=== PATIENT | male | born 1965 | race Two or more races ===

== ENCOUNTER 2019-01-31 11:28 | Inpatient (IN) | payer OTHER ==
[~2019-01-31 11:28] MED LIST: chlordiazePOXIDE HCL 25 MG CAPSULE PO SCH
[2019-01-31 12:06] VITALS: BMI 27.3
--- NOTE | 2019-01-31 13:23 | HP ---
CIWA Score Nausea/Vomitin Muscle Tremors: 2 Anxiety: 2 Agitation: 2 Paroxysmal Sweats: No Perspiration Orientation: 0-Oriented Tacttile Disturbances: 0-None Auditory Disturbances: 0-None Visual Disturbances: 0-None Headache: 4-Moderately Severe CIWA-Ar Total Score: 13 - Admission Criteria OASAS Guidelines: Admission for Medically Managed Detox: Requires at least one of the followin. CIWA greater than 12 2. Seizures within the past 24 hours 3. Delirium tremens within the past 24 hours 4. Hallucinations within the past 24 hours 5. Acute intervention needed for co occurring medical disorder 6. Acute intervention needed for co occurring psychiatric disorder 7. Severe withdrawal that cannot be handled at a lower level of care (continued vomiting, continued diarrhea, abnormal vital signs) requiring intravenous medication and/or fluids 8. Admission ROS [facility] Chief Complaint: seeking detox from alcohol use Allergies/Adverse Reactions: Allergies Allergy/AdvReac Type Severity Reaction Status Date / Time No Known Allergies Allergy Verified 01/31/19 11:48 History of Present Illness: 53 y/o/m here seeking detox from alcohol and cocaine use. He was admitted [facility] on 01/19 for a right foot injury he sustained after trying to jump over a fence. While he was admitted he had a cast placed on his right leg but did not require surgery. After he was discharged yesterday he started to drink again but today decided that he wanted to stop and came here for detox. He drank 2 40oz beers yesterday and 1 40z beer today. Prior to being admitted to [facility] he states he was drinking more. He states he has been drinking heavily for 30 years. He denies any extended periods of sobriety. He went to a detox facility 2 months ago at [facility] and then started rehab but did not complete his rehab and started drinking again. He has been using cocaine for 30 years. He is using about 200 dollars worth of cocaine weekly. He states he uses the cocaine mainly to control his back pain. He states he has 2 herniated discs in his neck and 2 in back. He used to smoke a pack a day but now has cut down to 6-7 cigarettes. He does not want a nicotine patch or gum. He would like to complete detox and go to a sober house for rehab. He was given a wheelchair when he was discharged from [facility]. - Ebola screening Have you traveled outside of the country in the last 21 days: No Have you had contact with anyone from an Ebola affected area: No Do you have a fever: No - Review of Systems Constitutional: No Symptoms Reported EENT: reports: No Symptoms Reported Respiratory: reports: No Symptoms reported Cardiac: reports: No Symptoms Reported GI: reports: Diarrhea, Nausea : reports: No Symptoms Reported Musculoskeletal: reports: Back Pain Integumentary: reports: No Symptoms Reported Neuro: reports: Headache Endocrine: reports: No Symptoms Reported Hematology: reports: No Symptoms Reported Psychiatric: reports: Agitated, Anxious Other Systems: Reviewed and Negative Patient History - Patient Medical History Hx Anemia: No Hx Asthma: Yes Hx Chronic Obstructive Pulmonary Disease (COPD): No Hx Cancer: No Hx Cardiac Disorders: No Hx Congestive Heart Failure: No Hx Hypertension: No Hx Hypercholesterolemia: No Hx Pacemaker: No HX Cerebrovascular Accident: No Hx Seizures: No Hx Dementia: No Hx Diabetes: No Hx Gastrointestinal Disorders: No Hx Liver Disease: No Hx Genitourinary Disorders: No Hx Sexually Transmitted Disorders: No Hx Renal Disease (ESRD): No Hx Thyroid Disease: No Hx Human Immunodeficiency Virus (HIV): No Hx Hepatitis C: No Hx Depression: No Hx Suicide Attempt: No Hx Bipolar Disorder: No Hx Schizophrenia: No Other Medical History: no suicidal or homicidal ideations - Patient Surgical History Past Surgical History: No Hx Neurologic Surgery: No Hx Cataract Extraction: No Hx Cardiac Surgery: No Hx Lung Surgery: No Hx Abdominal Surgery: No Hx Appendectomy: No Hx Cholecystectomy: No Hx Genitourinary Surgery: No Hx Section: No Hx Orthopedic Surgery: No Hx Hysterectomy: No Anesthesia Reaction: No - PPD History Previous Implant?: Yes Documented Results: Negative w/o proof Implanted On Prior R Admission?: No PPD to be Administered?: Yes - Smoking Cessation Smoking history: Current every day smoker Aproximately how many cigarettes per day: 7 Hx Chewing Tobacco Use: No Initiated information on smoking cessation: Yes 'Breaking Loose' booklet given: 01/31/19 - Substance & Tx. History Hx Alcohol Use: Yes Hx Substance Use: Yes Substance Use Type: Alcohol, Cocaine - Substances abused Alcohol Substance route: Oral Frequency: Daily Amount used: 2/40OZ CANS Age of first use: 10 Date of last use: 01/31/19 Cocaine Substance route: Inhalation Frequency: Daily Amount used: $200-$500 Age of first use: 16 Date of last use: 01/31/19 Family Disease History - Family Disease History Family History: Denies Admission Physical Exam [facility] - Vital Signs Vital Signs: Vital Signs - 24 hr 01/31/19 12:00 Temperature 98.6 F Pulse Rate 120 H Respiratory 18 Rate Blood Pressure 138/86 - Physical General Appearance: Yes: Within Normal Limits, Nourished HEENTM: Yes: EOMI, Hearing grossly Normal, Normocephalic Respiratory: Yes: Lungs Clear, Normal Breath Sounds, No Accessory Muscle Use. No: Wheezing Neck: Yes: Supple Cardiology: Yes: Regular Rhythm, Regular Rate, S1, S2 Abdominal: Yes: Normal Bowel Sounds, Non Tender, Soft. No: Distended, Guarding , Rebound Back: Yes: Other (moderate tenderness to palpation over L3-L5 region, worse on the right) Musculoskeletal: Yes: Within Normal Limits, Other (cast over right leg and foot) Extremities: Yes: Normal Capillary Refill Neurological: Yes: windows systems administrator II-XII NML intact, Fully Oriented, Alert, Motor Strength 5/5 Integumentary: Yes: Within Normal Limits Lymphatic: Yes: Within Normal Limits - Diagnostic (1) Alcohol dependence with uncomplicated withdrawal Current Visit: Yes Status: Acute (2) Asthma Current Visit: Yes Status: Acute (3) Cocaine use Current Visit: Yes Status: Acute (4) Nicotine dependence Current Visit: Yes Status: Acute (5) Calcaneal fracture Current Visit: Yes Status: Acute (6) Crutches as ambulation aid Current Visit: Yes Status: Acute (7) Wheel chair as ambulatory aid Current Visit: Yes Status: Acute Cleared for Admission [facility] - Detox or Rehab [facility] Level of Care: Medically Managed Detox Regimen/Protocol: Librium Breathalyzer - Breathalyzer Breathalyzer: 0 Urine Drug Screen - Test Device Lot number: [id number] Expiration date: 09/28/20 - Control Is test valid?: Yes - Results Drug screen NEGATIVE: No Urine drug screen results: UTE-Cocaine Inpatient Rehab Admission - Rehab Decision to Admit Inpatient rehab admission?: No
[2019-01-31] MEDS ORDERED: chlordiazePOXIDE HCL 25 MG CAPSULE PO PRN (13:57)
[2019-01-31] MEDS ORDERED: MENTHOL/PHENOL 1 EACH UD MM PRN (13:57)
[2019-01-31] MEDS ORDERED: MAG HYDROX/AL HYDROX/SIMETH 30 ML UNIT-DOSE CUP PO PRN (13:57)
[2019-01-31] MEDS ORDERED: MAGNESIUM HYDROX 2400MG/30ML ORAL SUSPENSION 30 ML CUP PO PRN (13:57)
[2019-01-31] MEDS ORDERED: ACETAMINOPHEN 325 MG TABLET (FP) PO PRN ×2 (13:57)
[2019-01-31] MEDS ORDERED: MAGNESIUM CITRATE 300 ML BOTTLE PO PRN (13:57)
[2019-01-31] MEDS ORDERED: BISMUTH SUBSALICYLATE 262 MG/15 ML BTL PO PRN (13:57)
[2019-01-31] MEDS ORDERED: hydrOXYzine PAMOATE 25 MG CAPSULE (FP) PO PRN (13:57)
[2019-01-31] MEDS ORDERED: PATIENT'S OWN MEDICATION (NON-FORMULARY) (Ibuprofen [Ibuprofen] 800 MG) PO PRN (13:59)
[2019-01-31] MEDS ORDERED: ALBUTEROL SO4 8 GM HFA INHALER IH PRN (13:59)
--- NOTE | 2019-01-31 14:29 | PN ---
[facility] Progress Note Note: this 53 years old male with alcohol dependence and cocaine dependence,seeking detox,extensive history of drinkiing problem, i personally present,review and discuss plan of treatment and review history and examination by Dr.Abbi Aragon, i agreed and concurred that this patient need inpatient detox from alcohol and cocaine,Medically Managed ,Librium regimen
--- NOTE | 2019-01-31 14:33 | PN ---
[facility] Progress Note Note: addendum correction I personally review,present with Dr.Harmanpree Castillo, review history and examination,plan of treatment and agrees and concurred for inpatient detox,medically managed and Librium regimen
[2019-01-31] MEDS: GABAPENTIN 300 MG CAPSULE (FP) PO SCH ×2 (15:36→22:23)
[2019-01-31] MEDS: chlordiazePOXIDE HCL 25 MG CAPSULE PO SCH ×2 (16:59→22:23)
[2019-01-31] MEDS: IBUPROFEN 400 MG TABLET (FP) PO PRN (16:59)
[2019-01-31 17:46] LABS: BILIRUBIN,TOTAL 0.4 mg/dL (0.2-1); BLOOD UREA NITROGEN 17.6 mg/dL (7-18); CALCIUM 10.2 mg/dL (8.5-10.1); CREATININE 1.2 mg/dL (0.55-1.3); POTASSIUM 4.7 mmol/L (3.5-5.1); TOT PROT 7.5 g/dl (6.4-8.2)
[2019-01-31 18:07] LABS: HEMATOCRIT 45.7 % (35.4-49); MCH 29.7 pg (25.7-33.7); MCHC 32.8 g/dl (32.0-35.9); MEAN CELL VOLUME 90.4 fl (80-96); MEAN PLT VOLUME 8.5 fl (7.5-11.1); PLATELET COUNT 304 K/MM3 (134-434); RBC 5.05 M/mm3 (4.00-5.60); RDW 13.2 % (11.9-15.9); WHITE BLOOD COUNT 11.5 K/mm3 (4.0-10.0)
[2019-01-31] MEDS: THIAMINE HCL 100 MG TABLET (FP) PO SCH (22:21)
[2019-01-31] MEDS: METHOCARBAMOL 500 MG TABLET PO PRN (22:24)
[2019-02-01] MEDS: GABAPENTIN 300 MG CAPSULE (FP) PO SCH ×3 (06:10→22:53)
[2019-02-01] MEDS: chlordiazePOXIDE HCL 25 MG CAPSULE PO SCH ×4 (06:10→22:53)
[2019-02-01 09:43] LABS: HYALINE CASTS 7 /lpf (0-8); URINE APPEARANCE TURBID; URINE BACTERIA 13.5 /hpf (NEGATIVE); URINE BILIRUBIN NEGATIVE (NEGATIVE); URINE COLOR DK YELLOW; URINE GLUCOSE (UA) NEGATIVE (NEGATIVE); URINE KETONE TRACE (NEGATIVE); URINE LEUK ESTERASE NEGATIVE (NEGATIVE); URINE NITRITE NEGATIVE (NEGATIVE); URINE PROTEIN 1+ (NEGATIVE); URINE RBC 6 /hpf (0-4); URINE UROBILINOGEN 0.2 mg/dL (0.2-1.0); URINE WBC 6 /hpf (0-5)
[2019-02-01] MEDS: ASPIRIN 81 MG CHEWABLE TABLETS PO SCH (10:00)
[2019-02-01] MEDS: PRENATAL VITAMINS W/ FOLIC ACID TABLET (FP) PO SCH (10:00)
--- NOTE | 2019-02-01 10:16 | PN ---
S CIWA - CIWA Score Nausea/Vomitin Muscle Tremors: 2 Anxiety: 2 Agitation: 2 Paroxysmal Sweats: No Perspiration Orientation: 0-Oriented Tacttile Disturbances: 1-Very Mild Itch/Numbness Auditory Disturbances: 1-Very Mild Visual Disturbances: 0-None Headache: 2-Mild CIWA-Ar Total Score: 12 BHS Progress Note (SOAP) Subjective: alert,irritable,anxious,interrupted sleep,pain in the right foot,ambulation the hallway with wheelchair Objective: 02/01/19 10:12 Vital Signs Temperature 97.9 F 02/01/19 09:17 Pulse Rate 121 H 02/01/19 09:17 Respiratory Rate 18 02/01/19 09:17 Blood Pressure 147/90 02/01/19 09:17 O2 Sat by Pulse Oximetry (%) 02/01/19 10:13 Laboratory Last Values WBC 11.5 K/mm3 (4.0-10.0) H 01/31/19 14:20 RBC 5.05 M/mm3 (4.00-5.60) 01/31/19 14:20 Hgb 15.0 GM/dL (11.7-16.9) 01/31/19 14:20 Hct 45.7 % (35.4-49) 01/31/19 14:20 MCV 90.4 fl (80-96) 01/31/19 14:20 MCH 29.7 pg (25.7-33.7) 01/31/19 14:20 MCHC 32.8 g/dl (32.0-35.9) 01/31/19 14:20 RDW 13.2 % (11.9-15.9) 01/31/19 14:20 Plt Count 304 K/MM3 (134-434) 01/31/19 14:20 MPV 8.5 fl (7.5-11.1) 01/31/19 14:20 Sodium 137 mmol/L (136-145) 01/31/19 14:20 Potassium 4.7 mmol/L (3.5-5.1) 01/31/19 14:20 Chloride 102 mmol/L (98-107) 01/31/19 14:20 Carbon Dioxide 30 mmol/L (21-32) 01/31/19 14:20 Anion Gap 5 MMOL/L (8-16) L 01/31/19 14:20 BUN 17.6 mg/dL (7-18) 01/31/19 14:20 Creatinine 1.2 mg/dL (0.55-1.3) 01/31/19 14:20 Est GFR (CKD-EPI)AfAm 80.66 01/31/19 14:20 Est GFR (CKD-EPI)NonAf 69.59 01/31/19 14:20 Random Glucose 119 mg/dL (74-106) H 01/31/19 14:20 Calcium 10.2 mg/dL (8.5-10.1) H 01/31/19 14:20 Total Bilirubin 0.4 mg/dL (0.2-1) 01/31/19 14:20 AST 18 U/L (15-37) 01/31/19 14:20 ALT 81 U/L (13-61) H 01/31/19 14:20 Alkaline Phosphatase 122 U/L (45-117) H 01/31/19 14:20 Total Protein 7.5 g/dl (6.4-8.2) 01/31/19 14:20 Albumin 4.0 g/dl (3.4-5.0) 01/31/19 14:20 Urine Color Dk yellow 01/31/19 18:41 Urine Appearance Turbid 01/31/19 18:41 Urine pH 5.0 (5.0-8.0) 01/31/19 18:41 Ur Specific [place] 1.024 (1.010-1.035) 01/31/19 18:41 Urine Protein 1+ (NEGATIVE) H 01/31/19 18:41 Urine Glucose (UA) Negative (NEGATIVE) 01/31/19 18:41 Urine Ketones Trace (NEGATIVE) H 01/31/19 18:41 Urine Blood Negative (NEGATIVE) 01/31/19 18:41 Urine Nitrite Negative (NEGATIVE) 01/31/19 18:41 Urine Bilirubin Negative (NEGATIVE) 01/31/19 18:41 Urine Urobilinogen 0.2 mg/dL (0.2-1.0) 01/31/19 18:41 Ur Leukocyte Esterase Negative (NEGATIVE) 01/31/19 18:41 Urine WBC (Auto) 6 /hpf (0-5) 01/31/19 18:41 Urine RBC (Auto) 6 /hpf (0-4) 01/31/19 18:41 Urine Casts (Auto) 7 /lpf (0-8) 01/31/19 18:41 U Epithel Cells (Auto) 1.0 /HPF (0-5/HPF) 01/31/19 18:41 Urine Bacteria (Auto) 13.5 /hpf (NEGATIVE) 01/31/19 18:41 HIV 1&2 Antibody Screen Negative 01/31/19 14:20 HIV P24 Antigen Negative 01/31/19 14:20 Assessment: 02/01/19 10:14 withdrawal symptom Plan: continue detox,wbc 11,500,glucose 119,alt 81,[id number] encourage oral fluid,repeat cbc,cmp in am,fasting glucose in am
--- NOTE | 2019-02-01 10:28 | EKG ---
Test Reason : Blood Pressure : / mmHG Vent. Rate : 104 BPM Atrial Rate : 104 BPM P-R Int : 124 ms QRS Dur : 094 ms QT Int : 330 ms P-R-T Axes : 063 027 -44 degrees QTc Int : 433 ms SINUS TACHYCARDIA VOLTAGE CRITERIA FOR LEFT VENTRICULAR HYPERTROPHY CANNOT RULE OUT SEPTAL INFARCT , AGE UNDETERMINED T WAVE ABNORMALITY, CONSIDER INFERIOR ISCHEMIA ABNORMAL ECG NO PREVIOUS ECGS AVAILABLE Confirmed by CLAUDIA ENRIQUE MD ([id number]) on 02/01/2019 10:27:54 AM Referred By: Confirmed By:CLAUDIA ENRIQUE MD
[2019-02-01] MEDS: IBUPROFEN 400 MG TABLET (FP) PO PRN (17:35)
[2019-02-01] MEDS: THIAMINE HCL 100 MG TABLET (FP) PO SCH (22:53)
[2019-02-01] MEDS: METHOCARBAMOL 500 MG TABLET PO PRN (23:25)
[2019-02-02] MEDS ORDERED: chlordiazePOXIDE HCL 10 MG CAPSULE PO PRN
[2019-02-02] MEDS: chlordiazePOXIDE HCL 25 MG CAPSULE PO SCH ×4 (06:03→22:59)
[2019-02-02] MEDS: GABAPENTIN 300 MG CAPSULE (FP) PO SCH ×3 (06:03→22:59)
[2019-02-02] MEDS: IBUPROFEN 400 MG TABLET (FP) PO PRN (06:03)
[2019-02-02 10:12] LABS: ALBUMIN 3.3 g/dl (3.4-5.0); BILIRUBIN,TOTAL 0.4 mg/dL (0.2-1); BLOOD UREA NITROGEN 20.7 mg/dL (7-18); CALCIUM 9.2 mg/dL (8.5-10.1); CREATININE 0.9 mg/dL (0.55-1.3); POTASSIUM 4.6 mmol/L (3.5-5.1); TOT PROT 6.3 g/dl (6.4-8.2)
[2019-02-02 10:15] LABS: HEMATOCRIT 38.9 % (35.4-49); HEMOGLOBIN 13.2 GM/dL (11.7-16.9); MCH 30.4 pg (25.7-33.7); MEAN CELL VOLUME 89.4 fl (80-96); MEAN PLT VOLUME 7.9 fl (7.5-11.1); PLATELET COUNT 255 K/MM3 (134-434); RBC 4.35 M/mm3 (4.00-5.60); RDW 12.8 % (11.9-15.9); WHITE BLOOD COUNT 5.8 K/mm3 (4.0-10.0)
[2019-02-02] MEDS: ASPIRIN 81 MG CHEWABLE TABLETS PO SCH (11:00)
[2019-02-02] MEDS: PRENATAL VITAMINS W/ FOLIC ACID TABLET (FP) PO SCH (11:00)
--- NOTE | 2019-02-02 11:44 | PN ---
S CIWA - CIWA Score Nausea/Vomitin Muscle Tremors: 2 Anxiety: 2 Agitation: 2 Paroxysmal Sweats: No Perspiration Orientation: 0-Oriented Tacttile Disturbances: 0-None Auditory Disturbances: 0-None Visual Disturbances: 0-None Headache: 1-Very Mild CIWA-Ar Total Score: 9 BHS Progress Note (SOAP) Subjective: alert,irritable,anxious,interrupted sleep,pain in the body Objective: 02/02/19 11:43 Vital Signs Temperature 98.1 F 02/02/19 10:00 Pulse Rate 100 H 02/02/19 10:00 Respiratory Rate 18 02/02/19 10:00 Blood Pressure 139/77 02/02/19 10:00 O2 Sat by Pulse Oximetry (%) 02/02/19 11:43 Laboratory Results - last 24 hr 01/31/19 02/02/19 02/02/19 18:41 07:50 07:50 WBC 5.8 RBC 4.35 Hgb 13.2 Hct 38.9 MCV 89.4 MCH 30.4 MCHC 34.0 RDW 12.8 Plt Count 255 MPV 7.9 Sodium 142 Potassium 4.6 Chloride 109 H Carbon Dioxide 28 Anion Gap 5 L BUN 20.7 H Creatinine 0.9 Est GFR (CKD-EPI)AfAm 114.21 Est GFR (CKD-EPI)NonAf 98.54 Random Glucose 140 H Fasting Glucose Calcium 9.2 Total Bilirubin 0.4 AST 17 ALT 56 Alkaline Phosphatase 108 Total Protein 6.3 L Albumin 3.3 L Urine Crystals (Auto) 02/02/19 07:50 WBC RBC Hgb Hct MCV MCH MCHC RDW Plt Count MPV Sodium Potassium Chloride Carbon Dioxide Anion Gap BUN Creatinine Est GFR (CKD-EPI)AfAm Est GFR (CKD-EPI)NonAf Random Glucose Fasting Glucose 141 H Calcium Total Bilirubin AST ALT Alkaline Phosphatase Total Protein Albumin Urine Crystals (Auto) Assessment: 02/02/19 11:44 withdrawal symptom Plan: continue detox,bgm monitoring
[2019-02-02] MEDS: THIAMINE HCL 100 MG TABLET (FP) PO SCH (23:00)
[2019-02-02] MEDS: MELATONIN 5 MG TABLETS PO PRN (23:00)
[2019-02-02] MEDS: METHOCARBAMOL 500 MG TABLET PO PRN (23:00)
[2019-02-03] MEDS: chlordiazePOXIDE HCL 10 MG CAPSULE PO SCH ×4 (05:24→23:16)
[2019-02-03] MEDS: GABAPENTIN 300 MG CAPSULE (FP) PO SCH ×3 (05:24→23:12)
[2019-02-03] MEDS: ASPIRIN 81 MG CHEWABLE TABLETS PO SCH (10:30)
[2019-02-03] MEDS: PRENATAL VITAMINS W/ FOLIC ACID TABLET (FP) PO SCH (10:30)
--- NOTE | 2019-02-03 10:41 | PN ---
S CIWA - CIWA Score Nausea/Vomitin-No Nausea/No Vomiting Muscle Tremors: None Anxiety: 3 Agitation: 2 Paroxysmal Sweats: 3 Orientation: 0-Oriented Tacttile Disturbances: 0-None Auditory Disturbances: 0-None Visual Disturbances: 0-None Headache: 0-None Present CIWA-Ar Total Score: 8 S Progress Note (SOAP) Subjective: c/o interrupted sleep, right ankle pain, and anxiety. Objective: 02/03/19 10:40 Vital Signs 02/03/19 02/03/19 07:47 09:25 Temperature 97.3 F L 98.2 F Pulse Rate 80 91 H Respiratory 18 18 Rate Blood Pressure 133/62 159/86 Lab Results WBC 5.8 K/mm3 (4.0-10.0) 02/02/19 07:50 RBC 4.35 M/mm3 (4.00-5.60) 02/02/19 07:50 Hgb 13.2 GM/dL (11.7-16.9) 02/02/19 07:50 Hct 38.9 % (35.4-49) 02/02/19 07:50 MCV 89.4 fl (80-96) 02/02/19 07:50 MCHC 34.0 g/dl (32.0-35.9) 02/02/19 07:50 RDW 12.8 % (11.9-15.9) 02/02/19 07:50 Plt Count 255 K/MM3 (134-434) 02/02/19 07:50 Sodium 142 mmol/L (136-145) 02/02/19 07:50 Potassium 4.6 mmol/L (3.5-5.1) 02/02/19 07:50 Chloride 109 mmol/L (98-107) H 02/02/19 07:50 Carbon Dioxide 28 mmol/L (21-32) 02/02/19 07:50 Anion Gap 5 MMOL/L (8-16) L 02/02/19 07:50 BUN 20.7 mg/dL (7-18) H 02/02/19 07:50 Creatinine 0.9 mg/dL (0.55-1.3) 02/02/19 07:50 Random Glucose 140 mg/dL (74-106) H 02/02/19 07:50 Calcium 9.2 mg/dL (8.5-10.1) 02/02/19 07:50 Labs noted Assessment: 02/03/19 10:41 AOX3, in no acute respiratory distress. Full ROM, ambulating in the unit. withdrawal symptoms Plan: continue detox.
[2019-02-03] MEDS: MELATONIN 5 MG TABLETS PO PRN (23:12)
[2019-02-03] MEDS: THIAMINE HCL 100 MG TABLET (FP) PO SCH (23:16)
[2019-02-04] MEDS: IBUPROFEN 400 MG TABLET (FP) PO PRN (01:25)
[2019-02-04] MEDS: METHOCARBAMOL 500 MG TABLET PO PRN (01:31)
[2019-02-04] MEDS: GABAPENTIN 300 MG CAPSULE (FP) PO SCH ×3 (06:51→22:22)
[2019-02-04] MEDS: PRENATAL VITAMINS W/ FOLIC ACID TABLET (FP) PO SCH (10:29)
[2019-02-04] MEDS: ASPIRIN 81 MG CHEWABLE TABLETS PO SCH (10:29)
--- NOTE | 2019-02-04 14:32 | PN ---
S CIWA - CIWA Score Nausea/Vomitin-No Nausea/No Vomiting Muscle Tremors: None Anxiety: 3 Agitation: 3 Paroxysmal Sweats: No Perspiration Orientation: 0-Oriented Tacttile Disturbances: 1-Very Mild Itch/Numbness Auditory Disturbances: 0-None Visual Disturbances: 1-Very Mild Sensitivity Headache: 0-None Present CIWA-Ar Total Score: 8 BHS Progress Note (SOAP) Subjective: Anxious, Body Aches. Objective: PATIENT A & O X 3, OBSERVED MOVING ABOUT DETOX UNIT IN A WHEELCHAIR. IN NO ACUTE DISTRESS. 02/04/19 14:29 Vital Signs Temperature 98.9 F 02/04/19 13:15 Pulse Rate 92 H 02/04/19 13:15 Respiratory Rate 18 02/04/19 13:15 Blood Pressure 134/82 02/04/19 13:15 O2 Sat by Pulse Oximetry (%) Laboratory Tests 01/31/19 01/31/19 01/31/19 14:20 14:20 14:20 WBC 11.5 H RBC 5.05 Hgb 15.0 Hct 45.7 MCV 90.4 MCH 29.7 MCHC 32.8 RDW 13.2 Plt Count 304 MPV 8.5 Sodium 137 Potassium 4.7 Chloride 102 Carbon Dioxide 30 Anion Gap 5 L BUN 17.6 Creatinine 1.2 Est GFR (CKD-EPI)AfAm 80.66 Est GFR (CKD-EPI)NonAf 69.59 POC Glucometer Random Glucose 119 H Fasting Glucose Calcium 10.2 H Total Bilirubin 0.4 AST 18 ALT 81 H Alkaline Phosphatase 122 H Total Protein 7.5 Albumin 4.0 Urine Color Urine Appearance Urine pH Ur Specific [place] Urine Protein Urine Glucose (UA) Urine Ketones Urine Blood Urine Nitrite Urine Bilirubin Urine Urobilinogen Ur Leukocyte Esterase Urine WBC (Auto) Urine RBC (Auto) Urine Casts (Auto) U Epithel Cells (Auto) Urine Crystals (Auto) Urine Bacteria (Auto) RPR Titer HIV 1&2 Antibody Screen HIV P24 Antigen TB (QFT) Incubation TB Test (QFT) Nil 0.02 TB Test (QFT) Mitogen >10.00 TB Test (QFT) Antigen 0.02 TB Test (QFT) Negative TB Positive Criteria 01/31/19 01/31/19 01/31/19 14:20 14:20 18:41 WBC RBC Hgb Hct MCV MCH MCHC RDW Plt Count MPV Sodium Potassium Chloride Carbon Dioxide Anion Gap BUN Creatinine Est GFR (CKD-EPI)AfAm Est GFR (CKD-EPI)NonAf POC Glucometer Random Glucose Fasting Glucose Calcium Total Bilirubin AST ALT Alkaline Phosphatase Total Protein Albumin Urine Color Dk yellow Urine Appearance Turbid Urine pH 5.0 Ur Specific [place] 1.024 Urine Protein 1+ H Urine Glucose (UA) Negative Urine Ketones Trace H Urine Blood Negative Urine Nitrite Negative Urine Bilirubin Negative Urine Urobilinogen 0.2 Ur Leukocyte Esterase Negative Urine WBC (Auto) 6 Urine RBC (Auto) 6 Urine Casts (Auto) 7 U Epithel Cells (Auto) 1.0 Urine Crystals (Auto) Urine Bacteria (Auto) 13.5 RPR Titer Nonreactive HIV 1&2 Antibody Screen Negative HIV P24 Antigen Negative TB (QFT) Incubation TB Test (QFT) Nil TB Test (QFT) Mitogen TB Test (QFT) Antigen TB Test (QFT) TB Positive Criteria 02/02/19 02/02/19 02/02/19 07:50 07:50 07:50 WBC 5.8 RBC 4.35 Hgb 13.2 Hct 38.9 MCV 89.4 MCH 30.4 MCHC 34.0 RDW 12.8 Plt Count 255 MPV 7.9 Sodium 142 Potassium 4.6 Chloride 109 H Carbon Dioxide 28 Anion Gap 5 L BUN 20.7 H Creatinine 0.9 Est GFR (CKD-EPI)AfAm 114.21 Est GFR (CKD-EPI)NonAf 98.54 POC Glucometer Random Glucose 140 H Fasting Glucose 141 H Calcium 9.2 Total Bilirubin 0.4 AST 17 ALT 56 Alkaline Phosphatase 108 Total Protein 6.3 L Albumin 3.3 L Urine Color Urine Appearance Urine pH Ur Specific [place] Urine Protein Urine Glucose (UA) Urine Ketones Urine Blood Urine Nitrite Urine Bilirubin Urine Urobilinogen Ur Leukocyte Esterase Urine WBC (Auto) Urine RBC (Auto) Urine Casts (Auto) U Epithel Cells (Auto) Urine Crystals (Auto) Urine Bacteria (Auto) RPR Titer HIV 1&2 Antibody Screen HIV P24 Antigen TB (QFT) Incubation TB Test (QFT) Nil TB Test (QFT) Mitogen TB Test (QFT) Antigen TB Test (QFT) TB Positive Criteria 02/02/19 02/03/19 02/04/19 16:56 05:33 07:08 WBC RBC Hgb Hct MCV MCH MCHC RDW Plt Count MPV Sodium Potassium Chloride Carbon Dioxide Anion Gap BUN Creatinine Est GFR (CKD-EPI)AfAm Est GFR (CKD-EPI)NonAf POC Glucometer 145 144 128 Random Glucose Fasting Glucose Calcium Total Bilirubin AST ALT Alkaline Phosphatase Total Protein Albumin Urine Color Urine Appearance Urine pH Ur Specific [place] Urine Protein Urine Glucose (UA) Urine Ketones Urine Blood Urine Nitrite Urine Bilirubin Urine Urobilinogen Ur Leukocyte Esterase Urine WBC (Auto) Urine RBC (Auto) Urine Casts (Auto) U Epithel Cells (Auto) Urine Crystals (Auto) Urine Bacteria (Auto) RPR Titer HIV 1&2 Antibody Screen HIV P24 Antigen TB (QFT) Incubation TB Test (QFT) Nil TB Test (QFT) Mitogen TB Test (QFT) Antigen TB Test (QFT) TB Positive Criteria LABS NOTED. Assessment: 02/04/19 14:33 WITHDRAWAL SYMPTOMS. HYPERGLYCEMIA. 02/04/19 14:33 Plan: CONTINUE DETOX. PATIENT SCHEDULED FOR D/C FROM DETOX UNIT TOMORROW. PATIENT ADVISED TO FOLLOW-UP WITH [facility] NURSE AFTER DISCHARGE FROM DETOX FOR GENERAL MEDICAL ASSESSMENT AND FOR ELEVATED ADMISSION RANDOM GLUCOSE AND FOR FASTING GLUCOSE LEVELS NOTED ON DETOX LABORATORY ASSESSMENT. PATIENT VERBALIZED UNDERSTANDING OF RECOMMENDATION. COPIES OF RESULTS OF ALL LABS DRAWN WHILE ADMITTED FOR DETOX GIVEN TO PATIENT AT TIME OF DISCHARGE FROM DETOX UNIT.
[2019-02-04] MEDS ORDERED: chlordiazePOXIDE HCL 10 MG CAPSULE PO SCH (17:00)
[2019-02-04] MEDS: THIAMINE HCL 100 MG TABLET (FP) PO SCH (22:22)
[2019-02-04] MEDS: MELATONIN 5 MG TABLETS PO PRN (22:23)
[2019-02-05] MEDS ORDERED: chlordiazePOXIDE HCL 10 MG CAPSULE PO ONE (05:00)
[2019-02-05] MEDS: GABAPENTIN 300 MG CAPSULE (FP) PO SCH (06:15)
[2019-02-05 09:27] VITALS: BP 143/89; PULSE 90; TEMP 97.5
[2019-02-05] MEDS: PRENATAL VITAMINS W/ FOLIC ACID TABLET (FP) PO SCH (10:57)
[2019-02-05] MEDS: ASPIRIN 81 MG CHEWABLE TABLETS PO SCH (10:57)
--- NOTE | 2019-02-05 16:34 | DS ---
[facility] Detox Discharge Summary Admission Date: 01/31/19 Discharge Date: 02/05/19 - History Present History: Alcohol Dependence, Cocaine Dependence Additional Comments: PATIENT GOING TO [facility] ([place], [place]) FOR AFTERCARE. PATIENT ADVISED TO FOLLOW-UP WITH BOX SEALING INSPECTOR AFTER DISCHARGE FROM DETOX FOR GENERAL MEDICAL ASSESSMENT AND FOR ELEVATED ADMISSION, FASTING AND BGM GLUCOSE LEVELS NOTED ON DETOX ADMISSION LABORATORY ASSESSMENT. PATIENT VERBALIZED UNDERSTANDING OF RECOMMENDATION. COPIES OF RESULTS OF ALL LABS DRAWN WHILE ADMITTED FOR DETOX GIVEN TO PATIENT AT TIME OF DISCHARGE FROM DETOX UNIT. PATIENT WAS DISCHARGED FROM DETOX UNIT IN STABLE MEDICAL CONDITION. Pertinent Past History: Asthma, Nicotine Dependence, History Of Calcaneal Fracture, Hyperglycemia, Use Of Wheelchair / Crutches as Ambulatory Aids. - Physical Exam Results Vital Signs: Vital Signs Temperature 97.5 F L 02/05/19 09:27 Pulse Rate 90 02/05/19 09:27 Respiratory Rate 18 02/05/19 09:27 Blood Pressure 143/89 02/05/19 09:27 O2 Sat by Pulse Oximetry (%) Pertinent Admission Physical Exam Findings: WITHDRAWAL SYMPTOMS. Laboratory Tests 01/31/19 01/31/19 01/31/19 14:20 14:20 14:20 WBC 11.5 H RBC 5.05 Hgb 15.0 Hct 45.7 MCV 90.4 MCH 29.7 MCHC 32.8 RDW 13.2 Plt Count 304 MPV 8.5 Sodium 137 Potassium 4.7 Chloride 102 Carbon Dioxide 30 Anion Gap 5 L BUN 17.6 Creatinine 1.2 Est GFR (CKD-EPI)AfAm 80.66 Est GFR (CKD-EPI)NonAf 69.59 POC Glucometer Random Glucose 119 H Fasting Glucose Calcium 10.2 H Total Bilirubin 0.4 AST 18 ALT 81 H Alkaline Phosphatase 122 H Total Protein 7.5 Albumin 4.0 Urine Color Urine Appearance Urine pH Ur Specific [place] Urine Protein Urine Glucose (UA) Urine Ketones Urine Blood Urine Nitrite Urine Bilirubin Urine Urobilinogen Ur Leukocyte Esterase Urine WBC (Auto) Urine RBC (Auto) Urine Casts (Auto) U Epithel Cells (Auto) Urine Crystals (Auto) Urine Bacteria (Auto) RPR Titer HIV 1&2 Antibody Screen HIV P24 Antigen TB (QFT) Incubation TB Test (QFT) Nil 0.02 TB Test (QFT) Mitogen >10.00 TB Test (QFT) Antigen 0.02 TB Test (QFT) Negative TB Positive Criteria 01/31/19 01/31/19 01/31/19 14:20 14:20 18:41 WBC RBC Hgb Hct MCV MCH MCHC RDW Plt Count MPV Sodium Potassium Chloride Carbon Dioxide Anion Gap BUN Creatinine Est GFR (CKD-EPI)AfAm Est GFR (CKD-EPI)NonAf POC Glucometer Random Glucose Fasting Glucose Calcium Total Bilirubin AST ALT Alkaline Phosphatase Total Protein Albumin Urine Color Dk yellow Urine Appearance Turbid Urine pH 5.0 Ur Specific [place] 1.024 Urine Protein 1+ H Urine Glucose (UA) Negative Urine Ketones Trace H Urine Blood Negative Urine Nitrite Negative Urine Bilirubin Negative Urine Urobilinogen 0.2 Ur Leukocyte Esterase Negative Urine WBC (Auto) 6 Urine RBC (Auto) 6 Urine Casts (Auto) 7 U Epithel Cells (Auto) 1.0 Urine Crystals (Auto) Urine Bacteria (Auto) 13.5 RPR Titer Nonreactive HIV 1&2 Antibody Screen Negative HIV P24 Antigen Negative TB (QFT) Incubation TB Test (QFT) Nil TB Test (QFT) Mitogen TB Test (QFT) Antigen TB Test (QFT) TB Positive Criteria 02/02/19 02/02/19 02/02/19 07:50 07:50 07:50 WBC 5.8 RBC 4.35 Hgb 13.2 Hct 38.9 MCV 89.4 MCH 30.4 MCHC 34.0 RDW 12.8 Plt Count 255 MPV 7.9 Sodium 142 Potassium 4.6 Chloride 109 H Carbon Dioxide 28 Anion Gap 5 L BUN 20.7 H Creatinine 0.9 Est GFR (CKD-EPI)AfAm 114.21 Est GFR (CKD-EPI)NonAf 98.54 POC Glucometer Random Glucose 140 H Fasting Glucose 141 H Calcium 9.2 Total Bilirubin 0.4 AST 17 ALT 56 Alkaline Phosphatase 108 Total Protein 6.3 L Albumin 3.3 L Urine Color Urine Appearance Urine pH Ur Specific [place] Urine Protein Urine Glucose (UA) Urine Ketones Urine Blood Urine Nitrite Urine Bilirubin Urine Urobilinogen Ur Leukocyte Esterase Urine WBC (Auto) Urine RBC (Auto) Urine Casts (Auto) U Epithel Cells (Auto) Urine Crystals (Auto) Urine Bacteria (Auto) RPR Titer HIV 1&2 Antibody Screen HIV P24 Antigen TB (QFT) Incubation TB Test (QFT) Nil TB Test (QFT) Mitogen TB Test (QFT) Antigen TB Test (QFT) TB Positive Criteria 02/02/19 02/03/19 02/04/19 16:56 05:33 07:08 WBC RBC Hgb Hct MCV MCH MCHC RDW Plt Count MPV Sodium Potassium Chloride Carbon Dioxide Anion Gap BUN Creatinine Est GFR (CKD-EPI)AfAm Est GFR (CKD-EPI)NonAf POC Glucometer 145 144 128 Random Glucose Fasting Glucose Calcium Total Bilirubin AST ALT Alkaline Phosphatase Total Protein Albumin Urine Color Urine Appearance Urine pH Ur Specific [place] Urine Protein Urine Glucose (UA) Urine Ketones Urine Blood Urine Nitrite Urine Bilirubin Urine Urobilinogen Ur Leukocyte Esterase Urine WBC (Auto) Urine RBC (Auto) Urine Casts (Auto) U Epithel Cells (Auto) Urine Crystals (Auto) Urine Bacteria (Auto) RPR Titer HIV 1&2 Antibody Screen HIV P24 Antigen TB (QFT) Incubation TB Test (QFT) Nil TB Test (QFT) Mitogen TB Test (QFT) Antigen TB Test (QFT) TB Positive Criteria 02/04/19 02/05/19 16:37 06:22 WBC RBC Hgb Hct MCV MCH MCHC RDW Plt Count MPV Sodium Potassium Chloride Carbon Dioxide Anion Gap BUN Creatinine Est GFR (CKD-EPI)AfAm Est GFR (CKD-EPI)NonAf POC Glucometer 210 138 Random Glucose Fasting Glucose Calcium Total Bilirubin AST ALT Alkaline Phosphatase Total Protein Albumin Urine Color Urine Appearance Urine pH Ur Specific [place] Urine Protein Urine Glucose (UA) Urine Ketones Urine Blood Urine Nitrite Urine Bilirubin Urine Urobilinogen Ur Leukocyte Esterase Urine WBC (Auto) Urine RBC (Auto) Urine Casts (Auto) U Epithel Cells (Auto) Urine Crystals (Auto) Urine Bacteria (Auto) RPR Titer HIV 1&2 Antibody Screen HIV P24 Antigen TB (QFT) Incubation TB Test (QFT) Nil TB Test (QFT) Mitogen TB Test (QFT) Antigen TB Test (QFT) TB Positive Criteria LABS NOTED. - Treatment Hospital Course: Detox Protocol Followed, Detoxed Safely, Responded well, Discharged Condition Good, Rehab Referral Accepted Patient has Accepted a Rehab Referral to: [facility] ([place], [place]). - Medication Discharge Medications: Ambulatory Orders Albuterol Sulfate Inhaler - [Ventolin Hfa Inhaler -] 2 inh PO Q6H PRN 01/31/19 Aspirin [ASA -] 81 mg PO DAILY 01/31/19 Docusate Sodium [Colace] 100 mg PO BID 01/31/19 Sennosides/Docusate Sodium [Sennosides-Docusate Sodium Tab] 1 tab PO HS - Diagnosis (1) Alcohol dependence with uncomplicated withdrawal Status: Acute (2) Asthma Status: Acute Qualifiers: Asthma severity: unspecified severity Asthma persistence: unspecified Asthma complication type: uncomplicated Qualified Code(s): J45.909 - Unspecified asthma, uncomplicated (3) Calcaneal fracture Status: Acute Qualifiers: Encounter type: sequela Calcaneus location: unspecified portion of calcaneus Fracture type: closed Fracture alignment: nondisplaced Laterality: right Qualified Code(s): S92.001S - Unspecified fracture of right calcaneus, sequela (4) Cocaine use Status: Acute (5) Crutches as ambulation aid Status: Acute (6) Hyperglycemia Status: Acute (7) Injury of right foot Status: Acute Qualifiers: Encounter type: sequela Qualified Code(s): S99.921S - Unspecified injury of right foot, sequela (8) Nicotine dependence Status: Acute Qualifiers: Nicotine product type: cigarettes Substance use status: uncomplicated Qualified Code(s): F17.210 - Nicotine dependence, cigarettes, uncomplicated (9) Wheel chair as ambulatory aid Status: Acute - AMA Did Patient Leave Against Medical Advice: No
== END 2019-02-05 12:12 | disposition home or self-care (01) | DRG 774 ==
LOC: YASAS 11:28 → Y6N 14:06
PROVIDERS: ADMIT Surgery; ATTEND Surgery
PROC: HZ2ZZZZ Detoxification Services for Substance Abuse Treatment (ICD-10-PCS; principal; 2019-01-31)
DX: F10.230 Alcohol dependence with withdrawal, uncomplicated (principal); F14.20 Cocaine dependence, uncomplicated; F17.210 Nicotine dependence, cigarettes, uncomplicated; J45.909 Unspecified asthma, uncomplicated; R73.9 Hyperglycemia, unspecified; S92.001D Unspecified fracture of right calcaneus, subsequent encounter for fracture with routine healing; Y93.39 Activity, other involving climbing, rappelling and jumping off; Z99.3 Dependence on wheelchair; Z99.89 Dependence on other enabling machines and devices
CPT/HCPCS: 36415; 80053; 81003; 82947; 82962; 85027; 86480; 86593; 87389; 93005; 93010